=== PATIENT | male | born 1965 | race Caucasian/White ===

== ENCOUNTER 2020-10-29 19:30 | Emergency (ER) | payer OTHER ==
[2020-10-29 19:53] VITALS: BP 136/90; PULSE 59; TEMP 97.7; BMI 28.5
== END 2020-10-29 22:47 | disposition left against medical advice (07) ==
LOC: JER 19:30
DX: L02.414 Cutaneous abscess of left upper limb (principal)
CPT/HCPCS: 99283-25

== ENCOUNTER 2020-10-29 22:33 | Inpatient (IN) | payer OTHER ==
[2020-10-29] MEDS ORDERED: VANCOMYCIN 1,000 MG in DEXTROSE 5%-WATER - 250 ML IVPB ONE (22:41)
[2020-10-29] MEDS ORDERED: CLINDAMYCIN 600MG PREMIX IVPB 600 MG/50 ML BAG IVPB ONE (22:41)
[2020-10-29] MEDS ORDERED: CLINDAMYCIN PHOSPHATE 600 MG/4 ML VIAL ONE (23:30)
[2020-10-30] MEDS ORDERED: VANCOMYCIN 1,000 MG VIAL (RESTRICTED TO ID ONLY) ONE (00:32)
[2020-10-30] MEDS ORDERED: CEPHALEXIN MONOHYDRATE 500 MG CAPSULE (UD) PO ONE (00:51)
[2020-10-30 01:32] LABS: BASO % 0.2 % (0-2.0); HEMOGLOBIN 14.5 GM/dL (11.7-16.9); LYMPH % 31.8 % (8-40); MCH 31.4 pg (25.7-33.7); MCHC 33.7 g/dl (32.0-35.9); MEAN CELL VOLUME 93.1 fl (80-96); MEAN PLT VOLUME 9.1 fl (7.5-11.1); PLATELET COUNT 218 K/MM3 (134-434); RBC 4.62 M/mm3 (4.00-5.60); RDW 12.6 % (11.9-15.9); WHITE BLOOD COUNT 6.2 K/mm3 (4.0-10.0)
[2020-10-30 01:37] LABS: CHLORIDE 105 mmol/L (98-107); POTASSIUM 3.6 mmol/L (3.5-5.1); SODIUM 139 mmol/L (136-145)
[2020-10-30 01:39] LABS: ALBUMIN 4.1 g/dl (3.4-5.0); ANION GAP 5 MMOL/L (8-16); BLOOD UREA NITROGEN 15.1 mg/dL (7-18); CALCIUM 9.1 mg/dL (8.5-10.1); CO2 30 mmol/L (21-32); GLUCOSE,RANDOM 111 mg/dL (74-106)
[2020-10-30 01:42] LABS: SGOT/AST 27 U/L (15-37); SGPT/ALT 27 U/L (13-61)
[2020-10-30 01:43] LABS: CREATININE 0.9 mg/dL (0.55-1.3)
[2020-10-30 01:44] LABS: BILIRUBIN,TOTAL 0.5 mg/dL (0.2-1)
[2020-10-30 01:45] LABS: ALK PHOS 79 U/L (45-117)
[2020-10-30 03:42] VITALS: BMI 29.2
[2020-10-30] MEDS ORDERED: ACETAMINOPHEN 325 MG TABLET (FP) PO PRN (09:14)
[2020-10-30] MEDS ORDERED: oxyCODONE HCL 5 MG TABLET PO PRN (09:14)
[2020-10-30] MEDS ORDERED: CLINDAMYCIN IVPB 300 MG in DEXTROSE 5%-WATER - 48 ML IVPB ONE (09:48)
[2020-10-30] MEDS ORDERED: CLINDAMYCIN 300 MG PREMIX IVPB 300 MG/50 ML BAG IVPB ONE (10:16)
[2020-10-30] MEDS ORDERED: CLINDAMYCIN 300 MG PREMIX IVPB 300 MG/50 ML BAG IVPB SCH (16:30)
[2020-10-30] MEDS: VANCOMYCIN HCL 1,250 MG in DEXTROSE 5%-WATER - 250 ML IVPB SCH (18:37)
[2020-10-31] MEDS: VANCOMYCIN HCL 1,250 MG in DEXTROSE 5%-WATER - 250 ML IVPB SCH ×2 (05:44→17:42)
[2020-10-31 08:14] LABS: BASO % 1.2 % (0-2.0); EOS % 3.3 % (0-4.5); HEMATOCRIT 43.3 % (35.4-49); HEMOGLOBIN 14.6 GM/dl (11.7-16.9); LYMPH % 34.2 % (8-40); MCH 31.6 pg (25.7-33.7); MCHC 33.7 g/dl (32.0-35.9); MEAN CELL VOLUME 93.8 fl (80-96); MEAN PLT VOLUME 8.4 fl (7.5-11.1); MONO % 14.2 % (3.8-10.2); NEUT % 47.1 % (42.8-82.8); PLATELET COUNT 209 K/MM3 (134-434); RBC 4.61 M/mm3 (4.00-5.60); RDW 11.8 % (11.9-15.9); WHITE BLOOD COUNT 4.5 K/mm3 (4.0-10.8)
[2020-10-31 08:16] LABS: ALBUMIN 3.7 g/dl (3.4-5.0); BILIRUBIN,TOTAL 1.3 mg/dl (0.2-1); CALCIUM 9.1 mg/dl (8.5-10); CREATININE 0.8 mg/dl (0.55-1.3); MAGNESIUM 2.1 mg/dL (1.8-2.4); POTASSIUM 4.3 mmol/L (3.5-5.1)
[2020-11-01] MEDS: VANCOMYCIN HCL 1,250 MG in DEXTROSE 5%-WATER - 250 ML IVPB SCH (05:36)
[2020-11-01 06:36] VITALS: TEMP 98.2
[2020-11-01 07:52] LABS: BASO % 3.1 % (0-2.0); EOS % 2.9 % (0-4.5); HEMOGLOBIN 15.1 GM/dl (11.7-16.9); LYMPH % 28.9 % (8-40); MCH 32.8 pg (25.7-33.7); MCHC 35.1 g/dl (32.0-35.9); MEAN CELL VOLUME 93.5 fl (80-96); MEAN PLT VOLUME 8.4 fl (7.5-11.1); MONO % 10.7 % (3.8-10.2); NEUT % 54.4 % (42.8-82.8); PLATELET COUNT 203 K/MM3 (134-434); RDW 11.5 % (11.9-15.9); WHITE BLOOD COUNT 4.9 K/mm3 (4.0-10.8)
[2020-11-01 07:54] LABS: ALBUMIN 3.8 g/dl (3.4-5.0); BILIRUBIN,TOTAL 1.3 mg/dl (0.2-1); CREATININE 0.8 mg/dl (0.55-1.3); POTASSIUM 4.2 mmol/L (3.5-5.1)
[2020-11-01 10:14] VITALS: BP 120/70; PULSE 65
== END 2020-11-01 10:52 | disposition home or self-care (01) | DRG 558 ==
LOC: FER 22:33 → FM/S 10-30 02:07
PROVIDERS: ADMIT Internal Medicine; ATTEND Nurse Practitioner Acute Care
DX: M70.22 Olecranon bursitis, left elbow (principal); L02.414 Cutaneous abscess of left upper limb; L03.114 Cellulitis of left upper limb; S52.025A Nondisplaced fracture of olecranon process without intraarticular extension of left ulna, initial encounter for closed fracture; W00.0XXA Fall on same level due to ice and snow, initial encounter; Y92.89 Other specified places as the place of occurrence of the external cause
CPT/HCPCS: 36415; 73070-TC-LT-FY; 80053; 83735; 85025; 86140; 87070; 87205; 99285-25; C9803; U0003

== ENCOUNTER 2020-11-05 15:06 | Emergency (ER) | payer OTHER ==
[2020-11-05 15:18] VITALS: BP 122/83; PULSE 76; TEMP 97.9; BMI 28.5
== END 2020-11-05 15:54 | disposition home or self-care (01) ==
LOC: FER 15:06
DX: M70.22 Olecranon bursitis, left elbow (principal)
CPT/HCPCS: 87070; 87205; 99282-25

== ENCOUNTER 2024-02-19 08:11 | Day surgery (SDC) | payer OTHER ==
[2024-02-11 12:45] VITALS: BMI 29.1
[2024-02-19] MEDS ORDERED: ePHEDrine SULFATE 50 MG/1 ML AMPULE ONE (09:52)
[2024-02-19 10:18] VITALS: TEMP 98
[2024-02-19 10:31] VITALS: BP 121/79; PULSE 60; RESP 18
== END 2024-02-19 10:54 | disposition home or self-care (01) ==
LOC: FASU-ENDO 08:11
PROVIDERS: ATTEND Internal Medicine Gastroenterology
PROC: 0DBP8ZX Excision of Rectum, Via Natural or Artificial Opening Endoscopic, Diagnostic (ICD-10-PCS; principal; 2024-02-19 09:51)
DX: Z12.11 Encounter for screening for malignant neoplasm of colon (principal); D12.8 Benign neoplasm of rectum; K57.30 Diverticulosis of large intestine without perforation or abscess without bleeding
CPT/HCPCS: 88305-TC